=== PATIENT | female | born 1990 | race Caucasian/White ===

== ENCOUNTER 2022-01-15 17:00 | Emergency (ER) | payer OTHER, SELFPAY ==
[2022-01-15 19:21] VITALS: BP 142/88; PULSE 86; RESP 14; TEMP 36.8; O2SAT 100; BMI 21.4
== END 2022-01-15 23:39 | disposition left against medical advice (07) ==
PROVIDERS: Emergency Provider Emergency Medicine
DX: R06.02 Shortness of breath (principal)
CPT/HCPCS: 99281

== ENCOUNTER 2024-08-07 14:43 | Outpatient (REF) | payer OTHER, SELFPAY ==
--- OUTSIDE RECORDS SUMMARY | 2024-08-07 17:30 | XMS_ITS | Clinical Summary ---
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/18/2013 Overview (02/08/2017): acquired at age 1 through generalized illness Family History Medical History Relation Name Comments Other Mother Family history of Thyroid trouble Relation Name Status Comments Mother Social History Tobacco Use Types Packs/Day Years Used Date Smoking Tobacco: Never Comments:: Comments Unknown Sex and Gender Information Value Date Recorded Sex Assigned at Not on file Legal Sex Female 2:57 AM EDT Gender Identity Not on file Sexual Orientation Not on file Last Filed Vital Signs Vital Sign Reading Time Taken Comments Blood Pressure - - Pulse - - Temperature - - Respiratory Rate - - Oxygen Saturation - - Inhaled Oxygen Concentration - - Weight 60.3 kg (133 lb) 08/14/2014 10:49 AM EDT Height 167.6 cm (5' 6 ) 08/14/2014 10:49 AM EDT Body Mass Index 21.47 08/14/2014 10:49 AM EDT Plan of Treatment Health Maintenance Due Date Last Done Comments Cervical Cancer Screening 1988 HIV Screening 1988 HPV and Pap Smear 1988 Hepatitis C Screening 1988 Pap Smear 1988 Varicella Vaccines (1 of 2 - 13+ 2-dose series) 2001 Hepatitis B Vaccines (1 of 3 - 19+ 3-dose series) 12/07/2007 DTaP,Tdap,and Td Vaccines (2 - Td or Tdap) 04/05/2022 04/05/2012 COVID-19 Vaccine (3 - 2023-2 5 season) 2024 10/11/2021, 09/20/2021 Influenza Vaccine (#1) 2024 04/08/2012 Alcohol/Substance Use Screening 05/23/2024 Depression Screening and Follow-Up 05/23/2024 Social Drivers of Health Annual Screening 05/23/2024 RSV Vaccine (60+ years old and patients) (1 - 1-dose 75+ series) 12/07/2063 Pneumococcal Vaccine: Pediatric (0-5 Years) and At-Risk Patients (6-50 Years) Aged Out No longer eligible based on patient's age to complete this topic Insurance [employer] Care Teams Personal Injury Paralegal Relationship Specialty Start Date End Date Nela Crawley [address] [place] [id number] PCP - General Nurse Practitioner 11/15/22
--- OUTSIDE RECORDS SUMMARY | 2024-08-07 17:30 | XMS_ITS | Referral Summary ---
Author Organization [facility] Address [address] [place] [address] Care Team Providers Care Recoil Spring Winder Name Role Phone Nela Crawley Primary Care Provider [phone] Allergies No known active allergies Active Problems Problem Noted Date Diagnosed Date Acquired deviated nasal septum 08/15/2014 Chronic rhinitis 07/29/2014 Chronic sinusitis 05/09/2014 Otalgia 05/09/2014 Hyperbilirubinemia 03/22/2014 Papule 08/09/2013 Leukopenia 06/04/2013 Bilateral deafness 05/18/2013 Overview (02/08/2017): acquired at age 1 through generalized illness Social History Tobacco Use Types Packs/Day Years [...] 08/14/2014 10:49 AM EDT Plan of Treatment Not on file Insurance [facility] MEDICAID Care Teams Recoil Spring Winder Relationship Specialty Start Date End Date Nela Crawley [address] [place] [phone] PCP - General Nurse Practitioner 11/15/22
--- OUTSIDE RECORDS SUMMARY | 2024-08-07 17:30 | XMS_ITS | Patient Health Record ---
Author Organization [facility] Address [address] [place] [address] Care Team Providers Care Air Grinder Name Role Phone Fernando Williamson Primary Care Provider [phone] Reason For Referral No Information Plan Of Treatment No Information Insurance Providers Payer Name Payer Address Payer Phone Subscriber Number Group Number Insured Name Patient Relationship to Insured Coverage Start Date Coverage End Date [place] Medicaid [address] [place] [address] [id number] Nubia Terry Self - patient is the insured
--- NOTE | 2024-08-08 12:59 | MHC.AU.HA1 ---
Hearing Aid Evaluation Date of Visit: 08/07/24 Meat Grader Used: ASL- In Person Historical Information: Description of Hearing: Profound to severe sensorineural hearing loss Ad, profound sensorineural hearing loss As. Current personal amplification information, if applicable: none, recently lost Oticon Moriarty SP Summary: Most recently wore Oticon Moriarty SP on the right ear only fit in 2010. Recently lost. Reports bothersome tinnitus without hearing aid. Notes historically wearing two hearing aids and preferring that. Notes hearing aids are beneficial to her for sound awareness, access to environmental sounds for safety. Discussed options. Recommended Phonak Diane L 70 UP BTE. Noted to pt. that Oticon, supervisor tan room she previously wore, has not released a new BTE hearing aid since 2019. Impressions taken without incidence Au. Hearing Aid Prescription: Based on the individual?s shared listening needs, communication environments, dexterity, desire for connectivity, and personal preferences, the following prescription for amplification has been made: Right ear: Make, Model, Color: Phonak Diane L 70 UP BTE silver Battery Size: 675 Type of Earmold/Dome/CShell/SlimTip: clear silicone shell Left ear: Make, Model, Color: Phonak Diane L 70 UP BTE silver Battery Size: Rechargeable Type of Earmold/Dome/CShell/SlimTip: clear silicone shell Plan of Care: Patient wishes to purchase hearing aids as prescribed Action Taken/Action Needed: Earmold Impressions Taken Prior authorization to be requested Medical Clearance to be requested from PCP/ENT Hearing Instrument Fitting to be scheduled when materials arrive Primary Diagnosis: H90.3 Bilateral Sensorineural Hearing Loss Signature: Provider: Juan Jose Rodriguez, [facility]
== END 2024-08-07 14:44 | disposition home or self-care (01) ==
LOC: HO.SH 14:43
PROVIDERS: Visit Provider Nurse Practitioner
DX: Z01.118 Encounter for examination of ears and hearing with other abnormal findings (principal); Z46.1 Encounter for fitting and adjustment of hearing aid; H90.3 Sensorineural hearing loss, bilateral
CPT/HCPCS: 92553; 92567; 92591; V5275

== ENCOUNTER 2024-10-08 15:28 | Outpatient (REF) | payer OTHER, SELFPAY ==
--- OUTSIDE RECORDS SUMMARY | 2024-10-08 15:32 | XMS_ITS | Patient Health Record ---
Author Organization [facility] Address [address] [place] [address] Care Team Providers Care Collections Clerk Name Role Phone Fernando Williamson Primary Care Provider Reason For Referral No Information Plan Of Treatment No Information Insurance Providers Payer Name Payer Address Payer Phone Subscriber Number Group Number Insured Name Patient Relationship to Insured Coverage Start Date Coverage End Date [place] Medicaid [address] [place] [address] [id number] Nubia Terry Self - patient is the insured
--- OUTSIDE RECORDS SUMMARY | 2024-10-08 15:32 | XMS_ITS | Referral Summary ---
Author Organization [facility] Address [address] [place] [address] Care Team Providers Care Healthcare Facility Administrator Name Role Phone Nela Crawley Primary Care Provider [phone] Allergies No known active allergies Active Problems [...] Plan of Treatment Not on file Insurance [facility] MEDICAID Care Teams Healthcare Facility Administrator Relationship Specialty Start Date End Date Nela Crawley [address] [place] [id number] PCP - General Nurse Practitioner 11/15/22
--- OUTSIDE RECORDS SUMMARY | 2024-10-08 15:32 | XMS_ITS | Clinical Summary ---
Author Organization [facility] Address [address] [place] [address] Care Team Providers Care Signs And Displays Sales Representative Name Role Phone Nela Crawley Primary Care Provider [phone] Allergies No known active allergies Active Problems [...] - 2023-2 5 season) 2024 10/11/2021, 09/20/2021 Alcohol/Substance Use Screening 05/23/2024 Depression Screening and Follow-Up 05/23/2024 Social Drivers of Health Annual Screening 05/23/2024 Influenza Vaccine (Season Ended) 2025 04/08/2012 RSV Vaccine (60+ years old and patients) (1 - 1-dose 75+ series) 12/07/2063 Pneumococcal Vaccine: Pediatric (0-5 Years) and At-Risk Patients (6-50 Years) Aged Out No longer eligible based on patient's age to complete this topic Insurance [facility] MEDICAID Care Teams Signs And Displays Sales Representative Relationship Specialty Start Date End Date Nela Crawley [address] [place] [phone] PCP - General Nurse Practitioner 11/15/22
--- NOTE | 2024-10-09 08:24 | MHC.AU.HA2 ---
Hearing Instrument Fitting- Adult- Binaural Date of Visit: 10/08/24 Hearing Instruments Dispensed: Right Ear: Make, Model, Color, Serial Number: Phonak Diane L 70 UP BTE silver S#[id number] Email Marketing Executive Repair Warranty: 10/14/2027 Email Marketing Executive Loss and Damage Warranty: 10/14/2027 [facility] Service Plan: 10/08/2025 Battery Size: 675 Earmold/Dome/CShell/SlimTip: clear silicone shell [id number] Warranty 12/19/2024 Left Ear: Make, Model, Color, Serial Number: Phonak Diane L 70 UP BTE silver S#[id number] Email Marketing Executive Repair Warranty: 10/14/2027 Email Marketing Executive Loss and Damage Warranty: 10/14/2027 [facility] Service Plan: 10/08/2025 Battery Size: 675 Earmold/Dome/CShell/SlimTip: clear silicone shell [id number] Warranty 12/19/2024 Summary of Fitting: Fit with and oriented to binaural Phonak Diane L70 UP BTE with silicone shell EMs. Verified to L adult 5 targets. Ran feedback. VC enabled, reviewed use. Longtime hearing aid user. Reviewed maintenance, precautions, batteries. Nubia noted the EMs felt a little loose indicated preference for a tight feeling fit. Ordered remakes from scans on file to have on hand to try at her follow up. Will have to take new impressions if fit is not improved. Recommendations: Recommendations: A hearing instrument follow-up was scheduled. Diagnosis Code(s): Primary Diagnosis: H90.3 Bilateral Sensorineural Hearing Loss Signature: Provider: Juan Jose Rodriguez, [facility]
== END 2024-10-08 15:29 | disposition home or self-care (01) ==
LOC: HO.HAP 15:28
PROVIDERS: Visit Provider Internal Medicine
DX: Z46.1 Encounter for fitting and adjustment of hearing aid (principal); H90.3 Sensorineural hearing loss, bilateral
CPT/HCPCS: V5011; V5020; V5160; V5261; V5264; V5266

== ENCOUNTER 2024-11-14 15:28 | Outpatient (REF) | payer OTHER, SELFPAY ==
--- OUTSIDE RECORDS SUMMARY | 2024-11-14 18:17 | XMS_ITS | Patient Health Record ---
Author Organization [facility] Address [address] [place] [address] Care Team Providers Care Asset Protection Associate Name Role Phone Fernando Williamson Primary Care Provider Reason For Referral No Information Plan Of Treatment No Information Insurance Providers Payer Name Payer Address Payer Phone Subscriber Number Group Number Insured Name Patient Relationship to Insured Coverage Start Date Coverage End Date [place] t[place] Medicaid [address] [place] [address] [id number] Nubia Terry Self - patient is the insured
--- NOTE | 2024-11-15 08:31 | MHC.AU.HA3 ---
Hearing Instrument Follow-Up- Binaural Date of Visit: 11/14/24 Clinical Reviewer Used: ASL in person Right Ear: Milind, Model, Color, Serial Number: Sierra Contreras L 70 UP BTE silver S#[id number] Information Support Project Manager Repair Warranty: 10/14/2027 Information Support Project Manager Loss and Damage Warranty: 10/14/2027 [facility] Service Plan: 10/08/2025 Battery Size: 675 Earmold/Dome/CShell/SlimTip:clear silicone shell [id number] Warranty 12/19/2024 Dispensed By: [facility] Date of Fittin10/08/2024 Left Ear: Milind, Model, Color, Serial Number: Sierra Contreras L 70 UP BTE silver S#[id number] Information Support Project Manager Repair Warranty: 10/14/2027 Information Support Project Manager Loss and Damage Warranty: 10/14/2027 [facility] Service Plan: 10/08/2025 Battery Size: 675 Earmold/Dome/CShell/SlimTip: clear silicone shell [id number] Warranty 12/19/2024 Dispensed By: [facility] Date of Fittin10/08/2024 Follow-Up Summary: Seen for hearing aid follow up. Dispensed remake earmolds for tighter fit. Nubia reports left feels good, right still loose in gage area- pointed out where the earmold doesn't sit tightly in gage bowl. Impression taken for remake of right mold without incidence. Otherwise, Nubia reports good satisfaction with the hearing aids, requests no programming changes at this time. Recommendations: Recommendations: Patient will be contacted when materials have arrived. Recommendations (Other): Needs EMF, video fine. Diagnosis Code(s): Primary Diagnosis: H90.3 Bilateral Sensorineural Hearing Loss Signature: Provider: Juan Jose Rodriguez, [facility]
== END 2024-11-14 15:29 | disposition home or self-care (01) ==
LOC: HO.HAP 15:28
PROVIDERS: Visit Provider Internal Medicine
DX: Z46.1 Encounter for fitting and adjustment of hearing aid (principal); H90.3 Sensorineural hearing loss, bilateral
CPT/HCPCS: V5266

== ENCOUNTER 2024-12-05 15:30 | Outpatient (REF) | payer OTHER, SELFPAY ==
--- OUTSIDE RECORDS SUMMARY | 2024-12-05 15:41 | XMS_ITS | Patient Health Record ---
Author Organization [facility] Address [address] [place] [address] Care Team Providers Care Pier Hand Name Role Phone Fernando Williamson Primary Care Provider Reason For Referral No Information Plan Of Treatment No Information Insurance Providers Payer Name Payer Address Payer Phone Subscriber Number Group Number Insured Name Patient Relationship to Insured Coverage Start Date Coverage End Date [place] Medicaid [address] [place] [id number] Nubia Terry Self - patient is the insured
--- OUTSIDE RECORDS SUMMARY | 2024-12-05 15:42 | XMS_ITS | Referral Summary ---
Author Organization [facility] Address [address] [place] [address] Care Team Providers Care Milling Machine Tender Name Role Phone Nela Crawley Primary Care Provider [phone] Allergies No known active allergies Active Problems [...] Plan of Treatment Not on file Insurance [facility] MEDICAID Care Teams Milling Machine Tender Relationship Specialty Start Date End Date Nela Crawley [address] [place] [phone] PCP - General Nurse Practitioner 11/15/22
--- NOTE | 2024-12-05 16:03 | MHC.AU.HA3 ---
Hearing Instrument Follow-Up- Binaural Date of Visit: 12/05/24 Ship'S Captain Used: ASL Video Right Ear: Milind, Model, Color, Serial Number: Sierra Contreras L 70 UP MIKAE silver S#[id number] Kiln Fireman Repair Warranty: 10/14/2027 Kiln Fireman Loss and Damage Warranty: 10/14/2027 [facility] Service Plan: 10/08/2025 Battery Size: 675 Earmold/Dome/CShell/SlimTip:clear silicone shell [id number] Warranty 12/19/2024 Dispensed By: [facility] Date of Fittin10/08/2024 Left Ear: Milind, Model, Color, Serial Number: Sierra Contreras L 70 UP MIKAE silver S#[id number] Kiln Fireman Repair Warranty: 10/14/2027 Kiln Fireman Loss and Damage Warranty: 10/14/2027 [facility] Service Plan: 10/08/2025 Battery Size: 675 Earmold/Dome/CShell/SlimTip: clear silicone shell [id number] Warranty 12/19/2024 Dispensed By: [facility] Date of Fittin10/08/2024 Follow-Up Summary: Nubia came to excelsior picker her remade right mold. The new mold has a notably longer canal, fit is tighter in gage as requested. Nubia pointed out the the new earmold felt a bit hard against her tragus. Offered to sand the mold in that area to reduce pressure. Nubia declined and stated she would rather wear the new mold as is and see if she gets used to the tighter fit. She took the other right mold to hold on to for back up. Recommendations: Recommendations: Hearing instrument follow-up or maintenance as needed. Diagnosis Code(s): Primary Diagnosis: H90.3 Bilateral Sensorineural Hearing Loss Signature: Provider: Juan Jose Rodriguez, [facility]
== END 2024-12-05 15:31 | disposition home or self-care (01) ==
LOC: HO.HAP 15:30
PROVIDERS: Visit Provider Nurse Practitioner
DX: Z13.89 Encounter for screening for other disorder (principal)

== ENCOUNTER 2025-05-14 12:14 | Outpatient (REF) | payer OTHER, SELFPAY ==
--- OUTSIDE RECORDS SUMMARY | 2025-05-14 13:24 | XMS_ITS | Continuity of Care Document ---
Author Organization [place] - [facility], [facility] Address [address] [place] [address] Care Team Providers Care Hot Dog Vender Name Role Phone [facility] Primary Care Pro vider SHIKHA MCFARLAND Primary Care Provider Assessment Encounter Date Assessment Date Assessment LastModified by Organization Details LastModified Time 03/29/2025 03/29/2025 34-year-old female with history of GERD and allergies presents for re-evaluation of allergic rhinitis. On examination she has 1+ inferior turbinate hypertrophy and mucoid nasal drainage bilaterally. We discussed the potential etiologies of her rhinitis, including allergic rhinitis and vasomotor rhinitis. I discussed that maximum medication treatment for allergic rhinitis includes use of both Flonase and azelastine, in combination with an oral antihistamine. We discussed repeating her allergy testing to determine the severity of her allergies and to see if she would benefit from immunotherapy. In the meantime the patient would like to try different nasal spray, therefore I will send in ipratropium nasal spray to be used up to 3 times daily. I recommend starting the spray once daily for the first week to minimize nasal dryness. If she finds the medication to be beneficial and not too drying then she can increase to up to 3 times daily. I will order allergy testing and follow-up with her after regarding the results. If her allergy testing is not significant and the ipratropium nasal spray was not beneficial then we will consider CT imaging of her sinuses. All question were answered. [email or web address] Not available 03/29/2025 16:46:32 Plan of Treatment Reminders Order Date Submit Date Provider Last Modified By Organization Details Last Modified Time Details Appointments None recorded . Lab None recorded . Referral None recorded . Procedures allergy testing, skin prick (PROC) 2024 025 [email or web address] Not available 10:49:45 intrader mal allergy skin testing (PROC) 2024 025 [email or web address] Not available 10:49:45 pulmonar y function test procedur e (PROC) 2024 025 [email or web address] Not available 10:49:45 pulse oximetry (PROC) 2024 [email or web address] Not available 10:49:46 Surgeries None recorded . Imaging None recorded . Medication Orders ipratrop ium bromide 21 mcg (0.03 %) nasal spray 2024 [facility]/Ph[facility]acy #[id number], [address] [place], [address], 15:22:39 Patient TargetsNo targets recorded. Patient InstructionsNo instructions recorded. Reason for Referral None Reported. Problems Name Problem SNOMED Code Status Onset Date Resolution Date Notes Provider Name and Address Organization Details Recorded Time Jaw pain 227405942 Active 2016 Jaw pain; Note: Date Diagnosed : 06/21/2016 1:13 PM (R68.84) Not Available [facility] 4 03:19:13 Otalgia of right ear 5912809719 Active 2016 Otalgia, right ear; Note: Date Diagnosed : 7 8:24 AM (H92.01) Not Available [facility] 4 03:19:13 Posterior rhinorrhe a 82931522 Active 2018 Postnasal drip; Note: Date Diagnosed : 07/25/2018 10:13 AM (R09.82) Not Available [facility] 4 03:19:14 Disturban ce of oral epitheliu m 31536266825 9107 Active 2018 Other disturban bernie of oral epitheliu m, including tongue; Note: Date Diagnosed : 07/25/2018 10:12 AM (K13.29) Not Available [facility] 4 03:19:13 Gastroeso phageal reflux disease without esophagit is 104377841 Active 2018 Gastro-es ophageal reflux disease without esophagit is; Note: Date Diagnosed : 07/25/2018 10:20 AM (K21.9) FELIPE PYLE PA-C [address], [place], [address] , [facility] - [facility] [place] 5 15:36:13 Glossodyn ia 02072942 Active 2019 Glossodyn ia; Note: Date Diagnosed : 10/31/2019 11:01 AM (K14.6) Not Available [facility] 4 03:19:13 Chronic rhinitis 36394076 Active 2024 FELIPE PYLE PA-C [address], [place], [place], [address] , [place] - [facility] 5 15:35:11 Allergic rhinitis 85455885 Active 2024 FELIPE PYLE PA-C [address], [place], [place], [address] , [place] [facility] 5 15:35:16 Bilateral tinnitus 53849983555 02 Active 2024 FELIPE PYLE PA-C [address], [place], [place], [address] , [place] [facility] [place] 5 15:35:33 Profound hearing loss Active 2024 FELIPE PYLE PA-C [address], [place], [place], [address] , [place] - [facility] [place] 5 15:35:44 Profound sensorine ural hearing loss 564100805 Active 2024 FELIPE PYLE PA-C [address], [place], [address] , [place] - [facility] [place] 5 15:35:54 Sensorine ural hearing loss of bilateral ears 865296371 Active 2024 FELIPE PYLE PA-C [address] [place] [address], [place], [address] , [facility] - [facility] 15:36:03 Problem Notes None recorded. Procedures Surgical History Date Name Laterality Status Provider Name and Address Organization Details Recorded Time section completed Shawnee Talbot [facility] 02/20/2025 13:58:46 Imaging Results None recorded. Procedure Notes None recorded. Medical Equipment None Reported. Allergies Allergen ID Allergen Name Allergen Category Reaction Reaction Severity Criticality Documentation Date Start Date Code Code System Note Provider Name and Address Organization Details Recorded Time 866607 house dust allergeni c extract environme nt,medica tion Not available Not available Not available 02/20/2025 07968 9 RxNorm Shawnee wild [facility] 13:56:44 499911 orange juice food,medi cation Not available Not available Not available 02/20/2025 80696 66 RxNorm Shawnee wild [facility] 13:56:54 Medications Name Sig Start Date Stop Date Status Note LastModified by Organization Details LastModified Time nystatin 100,000 unit/mL oral suspensio n 12/13 completed Medicati on ID: [id number] P olga d By Name: CARIE Singh nd Name: nystatin Send Method: E-Prescr ibed Sub s Allowed: subs OK Speci al Instruct ion: 5 ml swish and spit four times daily x 2-4 weeks Me dication GenericN gustavo: nystatin Not Available Not Available Not Available famotidin e 10 mg tablet TAKE 1 TABLET BY MOUTH TWICE A DAY 02/20 completed Not Available Not Available Not Available cetirizin e 10 mg tablet TAKE 1 TABLET BY MOUTH EVERY DAY 02/20 completed Not Available Not Available Not Available amlodipin e 2.5 mg tablet TAKE 1 TABLET BY MOUTH EVERY DAY, DISCONTI NUE LISINOPR IL DUE TO SIDE EFFECTS 02/20 completed Not Available Not Available Not Available pantopraz ole 20 mg tablet,de layed release TAKE 1 TABLET BY MOUTH TWICE A DAY 02/20 completed Not Available Not Available Not Available triamcino lone acetonide 0.1 % dental paste 1 a small amount 02/20 completed Medicati on ID: [id number] D uration Value: 14 Prescri bed By Name: CARIE Singh nd Name: triamcin olone acetonid e Send Method: E-Prescr ibed Sub s Allowed: subs OK Speci al Instruct ion: apply small amount to tongue sore three times daily x 2 weeks Me dication GenericN gustavo: triamcin olone acetonid e Not Available Not Available Not Available meclizine 25 mg tablet TAKE 1 TABLET BY MOUTH THREE TIMES A DAY NEEDED FOR DIZZINES S 02/20 completed Not Available Not Available Not Available lisinopri l 5 mg tablet TAKE 1 TABLET BY MOUTH EVERY DAY active Not Available Not Available No t Available azelastin e 137 mcg (0.1 %) nasal spray SPRAY 2 SPRAYS BY INTRANAS AL ROUTE TWICE A DAY FOR 30 DAYS active Not Available Not Available No t Available ondansetr on 4 mg disintegr ating tablet DISSOLVE 1 TABLET BY MOUTH EVERY 8 HOURS NEEDED FOR NAUSEA AND VOMITING active Not Available Not Available No t Available lisinopri l 2.5 mg tablet TAKE 1 TABLET BY MOUTH EVERY DAY 02/20 completed Not Available Not Available Not Available ipratropi um bromide 21 mcg (0.03 %) nasal spray [place] 2 sprays 3 times a day by intranas al route. 2024 active Not Available Not Available Not Avai lable esomepraz ole magnesium 20 mg capsule,d elayed release TAKE 1 CAPSULE BY MOUTH DAILY,ON AN EMPTY STOMACH 30-40 MINS BEFORE BREAKFAS T 02/20 completed Not Available Not Available Not Available escitalop prem 5 mg tablet TAKE 1 TABLET BY MOUTH EVERY DAY active Not Available Not Available No t Available Vitals Date Recorded Body height Body mass index (BMI) Body weight Provider Name and Address Organization Details Last Updated DateTime 03/29/2025 170.18 cm 19.6 kg/m2 25164.05 g Tami Huang [place] - [facility] 03/29/2025 14:56:52 Social History None recorded. Functional Status None recorded. Mental Status None recorded. Family History Nothing Reported. Medical History Condition Response Anxiety Y Hypertension Y Depression Y Gynecological HistoryNo gynecological history recorded. Obstetrics History GPAL:G 0 P 0 0 0 0 Past Encounters Encounter ID Performer Location Encounter Start Date Encounter Closed Date Diagnosis/Indication Diagnosis SNOMED-CT Code Diagnosis ICD10 Code Diagnosis IMO Codes Diagnosis Note [id number] MIRELLA HUTTON [facility] of [address] [address] 03/29/2025 14:11:41 03/29/2025 15:32:09 Allergic rhinitis 40399257 J30.89 8103931 Chronic rhinitis 8690685 6 J31.0 2545 Health Concerns Section Related Observation LastModified by Organization Akilaai ls LastModified Time None Recorded Concern Status LastModified by Organization Details LastModified Time None Recorded Payers Encounter Date Sequence Insurance Name Policy Number Policy Gonzalez Covered Member ID Goznalez Member ID Guarantor Name 03/29/[address] [place] [address] (MEDICAID HMO) [id number] Nubia Cespedes Skrzypek [id number] Nubia Cespedes Skedzypek Notes Date Note Type Note Provider Name and Address Organization Details Recorded Time 03/29/2025 text/html ROS as noted in the HPI 34-year-old female with history of GERD and allergies presents for re-evaluation of allergic rhinitis. She has been azelastine for the last month, however she has not found it to be helpful. She has a history of using Flonase in the past, but does not recall how effective it was for her. She has a history of having allergy skin testing many years ago but does not recall undergoing immunotherapy. She states the nasal drainage is clear and comes from both nostrils, and she finds that it does worsen with eating and exercising. She denies a history of frequent sinus infections. Her blood pressure is well-controlled and she does not have any history of anaphylaxis. She developed some wheezing during a COVID infection and had to use an inhaler, but she has not been diagnosed with asthma outside of the COVID infection and does not continue to use inhalers. Today she did not fevers, facial pain or pressure, nosebleeds, and anosmia. Adarsh Short, [address] [facility],[place] [address], [place], [address], [facility] - [facility] 04/01/2025 12:17:41 OBGyn Episode No OBEpisode recorded.
--- OUTSIDE RECORDS SUMMARY | 2025-05-14 13:24 | XMS_ITS | Continuity of Care Document ---
Author Organization [place] - [facility], [facility] Address [address] [place] [address] Care Team Providers Care Data Coder Operator Name Role Phone [facility] ADULT MEDICINE Primary Care Pro vider SHIKHA MCFARLAND Primary Care Provider Assessment Encounter Date Assessment Date Assessment LastModified by Organization Details LastModified Time 02/20/2025 02/20/2025 34-year-old yrn carr presents for evaluation of tinnitus, chronic rhinitis, and bumps on tonsils. On exam, bilateral tympanic membranes are intact with well aerated middle ear spaces. Audiometric testing was not performed today as patient has known profound sensorineural hearing loss since childhood. Pathophysiology between hearing loss and tinnitus was discussed. Anterior rhinoscopy with mucoid rhinorrhea bilaterally, turbinate hypertrophy, and congested nasal mucosa. Tonsils are 2+ bilaterally and cryptic without exudate or tonsilliths. There is cobblestoning of the posterior pharynx. We discussed that nasal symptoms may be exacerbated by underlying allergies. We discussed trial of azelastine nasal spray which she would like to proceed with. She will follow-up in 1 month for reevaluation. If no improvement, may consider allergy testing and CT sinus. Also recommended following up with her community resource consultant for management of GERD. [email or web address] Not available 02/20/2025 15:37:22 Plan of Treatment Reminders Order Date Submit Date Provider Last Modified By Organization Details Last Modified Time Details Appointments None recorded. Lab None recorded. Referral None recorded. Procedures None recorded. Surgeries None recorded. Imaging None recorded. Medication Orders azelastine 137 mcg (0.1 %) nasal spray 2024 [id number] [facility]/Pharmacy #[id number], [address] [facility], [place], [address], 5 15:36:34 Patient TargetsNo targets recorded. Patient InstructionsNo instructions recorded. Reason for Referral None Reported. Problems Name Problem SNOMED Code Status Onset Date Resolution Date Notes Provider Name and Address Organization Details Recorded Time Jaw pain 920995128 Active 2016 Jaw pain; Note: Date Diagnosed : 06/21/2016 1:13 PM (R68.84) Not Available [facility] 4 03:19:13 Otalgia of right ear 6273263145 Active 2016 Otalgia, right ear; Note: Date Diagnosed : 7 8:24 AM (H92.01) Not Available [facility] 4 03:19:13 Posterior rhinorrhe a 67871965 Active 2018 Postnasal drip; Note: Date Diagnosed : 07/25/2018 10:13 AM (R09.82) Not Available [facility] 4 03:19:14 Disturban ce of oral epitheliu m 84094733658 9107 Active 2018 Other disturban bernie of oral epitheliu m, including tongue; Note: Date Diagnosed : 07/25/2018 10:12 AM (K13.29) Not Available [facility] 4 03:19:13 Gastroeso phageal reflux disease without esophagit is 557422869 Active 2018 Gastro-es ophageal reflux disease without esophagit is; Note: Date Diagnosed : 07/25/2018 10:20 AM (K21.9) FELIPE PYLE PA-C [address] [place] [address], [place], [address] , [place] [facility] 5 15:36:13 Glossodyn ia 54655645 Active 2019 Glossodyn ia; Note: Date Diagnosed : 10/31/2019 11:01 AM (K14.6) Not Available [facility] 4 03:19:13 Chronic rhinitis 16358771 Active 2024 FELIPE PYLE PA-C [address], [facility] [place], [address] , [facility] - [facility] 15:35:11 Allergic rhinitis 07845355 Active 2024 FELIPE PYLE PA-C [address], [place], [address] , [place] [facility] 15:35:16 Bilateral tinnitus 79083833954 02 Active 2024 FELIPE PYLE PA-C [address], [facility] [place], [address] , [place] [facility] 15:35:33 Profound hearing loss Active 2024 FELIPE PYLE PA-C [address], [facility] [place], [address] , [facility] - [facility] 15:35:44 Profound sensorine ural hearing loss 536898353 Active 2024 FELIPE PYLE PA-C [address], [place] [place], [address] , [facility] - [facility] 15:35:54 Sensorine ural hearing loss of bilateral ears 192499381 Active 2024 FELIPE PYLE PA-C [address], [facility] [place], [address] , [facility] - [facility] 15:36:03 Problem Notes None recorded. Procedures Surgical History Date Name Laterality Status Provider Name and Address Organization Details Recorded Time section completed Shawnee Talbot [place] - [facility] 02/20/2025 13:58:46 Imaging Results None recorded. Procedure Notes None recorded. Medical Equipment None Reported. Allergies Allergen ID Allergen Name Allergen Category Reaction Reaction Severity Criticality Documentation Date Start Date Code Code System Note Provider Name and Address Organization Details Recorded Time 316375 house dust allergeni c extract environme nt,medica tion Not available Not available Not available 02/20/2025 60708 9 RxNorm Shawnee Talbot [place] - [facility] 5 13:56:44 710059 orange juice food,medi cation Not available Not available Not available 02/20/2025 01411 66 RxNorm Shawnee Talbot [place] - [facility] 5 13:56:54 Medications Name Sig Start Date Stop Date Status Note LastModified by Organization Details LastModified Time nystatin 100,000 unit/mL oral suspensio n 12/13 completed Medicati on ID: [id number] P rescribe d By Name: CARIE Singh nd Name: [...] small amount 02/20 completed Medicati on ID: [id number] D uration Value: 14 Prescri bed By [...] TIMES A DAY NEEDED FOR DIZZINES S 10/01 /2025 completed Not Available Not Available Not Available [...] bromide 21 mcg (0.03 %) nasal spray [place] 2 sprays 3 times a day by [...] and Address Organization Details Last Updated DateTime 02/20/2025 170.18 cm 19.6 kg/m2 81951.05 g Shawnee Talbot [place] - [facility] 02/20/2025 13:56:11 Social History None recorded. Functional Status None [...] ICD10 Code Diagnosis IMO Codes Diagnosis Note [id number] FELIPE PYLE PA-C [facility] of [address] [address] 02/20/2025 13:34:30 02/20/2025 15:34:14 Gastroesophageal reflux disease without esophagitis 751961320 K21.9 Allergic rhinitis 470665 04 J30.89 9040679 Bilateral tinnitus 81506 73175 102 H93.13 054341 Sensorineu ral hearing loss of bilateral ears 285288306 H90.3 89919200 Health Concerns Section Related Observation LastModified by Organization Detai ls LastModified Time None Recorded Concern Status LastModified by Organization Details LastModified Time None Recorded Payers Encounter Date Sequence Insurance Name Policy Number Policy Gonzalez Covered Member ID Gonzalez Member ID Guarantor Name 02/20/2025 1 [facility] (MEDICAID HMO) [id number] Nubia M Skrzypek [id number] Nubia Keenanek Notes Date Note Type Note Provider Name and Address Organization Details Recorded Time 02/20/2025 text/html ROS as noted in the HPI 34-year-old female presents for evaluation of tinnitus. She has known profound sensorineural hearing loss bilaterally since childhood following an infection. Has right sided hearing aid dispensed from [facility]. Has noticed increase in tinnitus bilaterally, worse on the right. Denies otalgia and otorrhea. Does feel dizzy if she goes in an elevator, but otherwise denies vertigo. Also has concerns about bumps in the tonsils and chronic rhinitis. Reports history of GERD and it was recommended to start a PPI by her GI. She has not yet started PPI therapy as she reports having a reaction to PPI in the past. Also has chronic rhinitis. Has used Flonase without improvement. Reports positive skin testing many years ago. Denies history of chronic sinusitis. She was previously evaluated in 2019 for burning tongue. She reports having biopsy of the tongue by a surgeon and reports that it showed inflammation about 5 years ago. LIYA MAYBERRY MD [address] [place] [address], [place], [address], [facility] - [facility] 02/21/2025 08:31:21 OBGyn Episode No OBEpisode recorded.
--- OUTSIDE RECORDS SUMMARY | 2025-05-14 13:24 | XMS_ITS | Patient Health Record ---
Author Organization [facility] Address [address] [place] [address] Care Team Providers Care University Manager Name Role Phone Fernando Williamson Primary Care Provider [phone] Reason For Referral No Information Plan Of Treatment No Information Insurance Providers Payer Name Payer Address Payer Phone Subscriber Number Group Number Insured Name Patient Relationship to Insured Coverage Start Date Coverage End Date [place] [employer] [address] [place] [address] [id number] Nubia Terry Self - patient is the insured
--- OUTSIDE RECORDS SUMMARY | 2025-05-14 13:24 | XMS_ITS | Clinical Summary ---
Author Organization [facility] Address [address] [id number] Care Team Providers Care Day Light Relief Operator Name Role Phone Nela Crawley Primary Care Provider [phone] Allergies No known active allergies Active Problems [...] (2 - Td or Tdap) 04/05/2022 04/05/2012 Alcohol/Substance Use Screening 05/23/2024 Depression Screening and Follow-Up 05/23/2024 Social Drivers of Health Annual Screening 05/23/2024 Influenza Vaccine (#1) 2024 04/08/2012 COVID-19 Vaccine (3 - 2024-2 6 season) 2025 10/11/2021, 09/20/2021 Pneumococcal Vaccine: Pediatric (0-5 Years) and At-Risk Patients (6-50 Years) Aged Out No longer eligible based on patient's age to complete this topic Insurance [address] [place] [address] [facility] MEDICAID Care Teams Day Light Relief Operator Relationship Specialty Start Date End Date Nela Crawley [address] [place] [id number] PCP - General Nurse Practitioner 11/15/22
--- OUTSIDE RECORDS SUMMARY | 2025-05-14 13:24 | XMS_ITS | Data Portability ---
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 itzel Not available 02/20/2025 15:37:22 03/29/2025 03/29/2025 34-year-old yrn carr with history of GERD and allergies presents [...] of her sinuses. All question were answered. Not available 03/29/2025 16:46:32 Plan of Treatment Reminders Order Date Submit Date Provider Last Modified By Organization Details Last Modified Time Details Appointments None recorded . Lab None recorded . Referral None recorded . Procedures allergy testing, skin prick (PROC) 2024 025 [email or web address] Not available 5 10:49:45 intrader mal allergy skin testing (PROC) 2024 025 [email or web address] Not available 5 10:49:45 pulmonar y function test procedur e (PROC) 2024 025 [email or web address] Not available 5 10:49:45 pulse oximetry (PROC) 2024 025 [email or web address] Not available 5 10:49:46 Surgeries None recorded . Imaging None recorded . Medication Orders ipratrop ium bromide 21 mcg (0.03 %) nasal spray 2024 025 [facility]/Pharmacy #[id number], [address], [place], [address], 5 15:22:39 azelasti ne 137 mcg (0.1 %) nasal spray 2024 025 [facility]/Pharmacy #[id number], [address] [place], [address], 5 15:36:34 Patient TargetsNo targets recorded. Patient InstructionsNo instructions recorded. Reason for Referral None Reported. Problems Name Problem SNOMED Code Status Onset Date Resolution Date Notes Provider Name and Address Organization Details Recorded Time Jaw pain 173768255 Active 2016 Jaw pain; Note: Date Diagnosed : 06/21/2016 1:13 PM (R68.84) Not Available [facility] 4 03:19:13 Otalgia of right ear 7721262757 Active 2016 Otalgia, right ear; Note: Date Diagnosed : 7 8:24 AM (H92.01) Not Available [facility] 4 03:19:13 Posterior rhinorrhe a 33474535 Active 2018 Postnasal drip; Note: Date Diagnosed : 07/25/2018 10:13 AM (R09.82) Not Available [facility] 4 03:19:14 Disturban ce of oral epitheliu m 97423286378 9107 Active 2018 Other disturban bernie of oral epitheliu m, including tongue; Note: Date Diagnosed : 07/25/2018 10:12 AM (K13.29) Not Available [facility] 4 03:19:13 Gastroeso phageal reflux disease without esophagit is 274781082 Active 2018 Gastro-es ophageal reflux disease without esophagit is; Note: Date Diagnosed : 07/25/2018 10:20 AM (K21.9) FELIPE PYLE PA-C [address] [place] [address], [place], [address] , [facility] - [facility] 5 15:36:13 Glossodyn ia 35070157 Active 2019 Glossodyn ia; Note: Date Diagnosed : 10/31/2019 11:01 AM (K14.6) Not Available [facility] 4 03:19:13 Chronic rhinitis 66132199 Active 2024 FELIPE PYLE PA-C [address] [place] [address],[place] [address], [address] , [facility] - [facility] 15:35:11 Allergic rhinitis 37280195 Active 2024 FELIPE PYLE PA-C [address] [facility] [address] [place], [place], [address] , [facility] - [facility] 15:35:16 Bilateral tinnitus 49637712926 02 Active 2024 FELIPE PYLE PA-C [address] [facility],[address], [place], [address] , [facility] - [facility] 15:35:33 Profound hearing loss Active 2024 FELIPE PYLE PA-C [address] [facility],[address], [place], [address] , [facility] - [facility] 15:35:44 Profound sensorine ural hearing loss 610577024 Active 2024 FELIPE PYLE PA-C [address] [facility],[address], [place], [address] , [facility] - [facility] 15:35:54 Sensorine ural hearing loss of bilateral ears 051452385 Active 2024 FELIPE PYLE PA-C [address] [facility], [place], [address] , [facility] - [facility] 15:36:03 Problem Notes None recorded. Procedures Surgical History Date Name Laterality Status Provider Name and Address Organization Details Recorded Time section completed Shawnee Talbot [place] [facility] 02/20/2025 13:58:46 Imaging Results None recorded. Procedure Notes None recorded. Medical Equipment None Reported. Allergies Allergen ID Allergen Name Allergen Category Reaction Reaction Severity Criticality Documentation Date Start Date Code Code System Note Provider Name and Address Organization Details Recorded Time 728289 house dust allergeni c extract environme nt,medica tion Not available Not available Not available 02/20/2025 89402 9 RxNorm Shawnee wild [place] - [facility] 13:56:44 364004 orange juice food,medi cation Not available Not available Not available 02/20/2025 10931 66 RxNorm Shawnee wild [place] - [facility] 5 13:56:54 Medications Name Sig Start Date Stop Date Status Note LastModified by Organization Details LastModified Time nystatin 100,000 unit/mL oral suspensio n 12/13 completed Medicati on ID: [id number] P rescribe d By Name: CARIE Singh [...] small amount 02/20 completed Medicati on ID: [id number] D uration Value: 14 Prescri bed By [...] bromide 21 mcg (0.03 %) nasal spray [place] 2 sprays 3 times a day by [...] Updated DateTime 02/20/2025 170.18 cm 19.6 kg/m2 72048.05 g Shawnee Talobt [place] - [facility] 02/20/2025 13:56:11 Date Recorded Body height Body mass index (BMI) Body weight Provider Name and Address Organization Details Last Updated DateTime 03/29/2025 170.18 cm 19.6 kg/m2 54690.05 g Tami Huang [facility] 03/29/2025 14:56:52 Social History None recorded. Functional [...] ICD10 Code Diagnosis IMO Codes Diagnosis Note [id number] FELIPE PYLE PA-C [facility] [address] [address] 02/20/2025 13:34:30 02/20/2025 15:34:14 Gastroesophageal reflux disease without esophagitis 844645087 K21.9 Allergic rhinitis 702947 04 J30.89 2871585 Bilateral tinnitus 52087 96248 102 H93.13 247279 Sensorineu ral hearing loss of bilateral ears 304399254 H90.3 [id number] 89901 MIRELLA HUTTON [facility] [address] [place] [address] 03/29/2025 14:11:41 03/29/2025 15:32:09 Allergic rhinitis 63941198 J30.89 5168548 Chronic rhinitis 7636850 6 J31.0 2545 Health Concerns Section Related Observation LastModified by Organization Detai ls LastModified Time None Recorded Concern Status LastModified by Organization Details LastModified Time None Recorded Advance Directives Directive None Recorded Payers Insurance Date Sequence Insurance Name Policy Number Policy Gonzalez Covered Member ID Gonzalez Member ID Guarantor Name 04/11/2025 1 [facility] (MEDICAID HMO) [id number] Nubia Terry [id number] Nubia Terry Notes Date Note Type Note Provider Name and Address Organization Details Recorded Time 02/20/2025 text/html ROS as noted in the HPI 34-year-old female presents for evaluation of tinnitus. She has known profound sensorineural hearing loss bilaterally since childhood following an infection. Has right sided hearing aid dispensed from [facility] audiology. Has noticed increase in tinnitus bilaterally, [...] about 5 years ago. LIYA MAYBERRY MD [address] [place] [address], [phone], [place] - [facility] 02/21/2025 08:31:21 03/29/2025 text/html ROS as noted in the [...] or pressure, nosebleeds, and anosmia. Adarsh Short, DO [address] [facility],[place] [address], [place], [address], [facility] - [facility] 04/01/2025 12:17:41 OBGyn Episode No OBEpisode recorded.
== END 2025-05-14 12:15 | disposition home or self-care (01) ==
LOC: HO.HAP 12:14
PROVIDERS: Visit Provider Internal Medicine
DX: Z46.1 Encounter for fitting and adjustment of hearing aid (principal); H90.3 Sensorineural hearing loss, bilateral
CPT/HCPCS: V5266